=== PATIENT | male | born 1950 | race Caucasian/White ===

== ENCOUNTER 2019-02-15 16:18 | Inpatient (IN) | payer MEDICARE, OTHER ==
[~2019-02-15] VITALS: Ht 180.3 cm; Wt 80.9 kg
--- NOTE | 2019-02-15 16:48 | NUR ---
PT STATES COORDINATION OF LUE "OFF" TODAY, STATES UNSURE OF LLE MOVEMENT. PT ABLE TO AMBULATE, DENIES WEAKNESS. GCS 15, NO SLURRED SPEECH, NO FACIAL DROOP. CALL LIGHT WITHIN REACH, WARM BLANKET PROVIDED. POC REVIEWED WITH PT AND SPOUSE.
[2019-02-15 16:59] LABS: BASOPHILS # (AUTO) 0.03 x10^3/uL (0-0.1); BASOPHILS % (AUTO) 1 % (0-1); EOSINOPHILS # (AUTO) 0.06 x10^3/uL (0-0.4); EOSINOPHILS % (AUTO) 1 % (1-7); LYMPHOCYTES # (AUTO) 0.84 x10^3/uL (1-3.4); LYMPHOCYTES % (AUTO) 15 % (22-44); MD NO; MEAN CORPUSCULAR HEMOGLOBIN 34.5 pg (27.5-34.5); MEAN CORPUSCULAR HGB CONC 33.5 g/dL (33.2-36.2); MEAN CORPUSCULAR VOLUME 103.1 fL (81-97); MEAN PLATELET VOLUME 6.8 fL (7.4-10.4); MONOCYTES # (AUTO) 0.65 x10^3/uL (0.2-0.8); MONOCYTES % (AUTO) 12 % (2-9); NEUTROPHILS # (AUTO) 3.94 x10^3/uL (1.8-6.8); NEUTROPHILS % (AUTO) 71 % (42-75); PLATELET COUNT 270 x10^3/uL (130-400); RED BLOOD COUNT 4.64 x10^6/uL (4.38-5.82); RED CELL DISTRIBUTION WIDTH 13.6 % (9.4-14.8)
[2019-02-15 17:10] LABS: ALANINE AMINOTRANSFERASE 34 U/L (12-78); ALBUMIN 4.2 g/dL (3.4-5.0); ANION GAP 6 mmol/L (5-15); CALCIUM 9.2 mg/dL (8.5-10.1); CHLORIDE 106 mmol/L (98-107); CREATININE 1.08 mg/dL (0.7-1.3)
[2019-02-15 17:11] LABS: PROTHROMBIN TIME 10.5 Seconds (9.6-11.5)
[2019-02-15 17:13] LABS: ALKALINE PHOSPHATASE 67 U/L (45-117); BILIRUBIN,TOTAL 0.6 mg/dL (0.2-1.0); TOTAL PROTEIN 7.4 g/dL (6.4-8.2)
[2019-02-15] MEDS ORDERED: ATOR10TA9 PO (17:44)
[2019-02-15] MEDS ORDERED: ESOM20CA PO (17:44)
[2019-02-15] MEDS ORDERED: MONT10TA9 PO (17:44)
[2019-02-15] MEDS ORDERED: VIT1TABL67 PO (17:44)
[2019-02-15] MEDS ORDERED: TELM1TAB PO (17:44)
[2019-02-15] MEDS ORDERED: LEVO75TA5 PO (17:44)
[2019-02-15] MEDS ORDERED: CALC600T23 PO (17:44)
[2019-02-15] MEDS ORDERED: AMLO-150 PO (17:44)
[2019-02-15] MEDS ORDERED: MULT-257 PO (17:46)
[2019-02-15] MEDS ORDERED: UBID100C41 PO (17:46)
[2019-02-15] MEDS ORDERED: MELA5TAB19 PO (17:46)
--- NOTE | 2019-02-15 18:23 | NUR ---
ALL RESULTS BACK, PT FOR RECHECK.
--- NOTE | 2019-02-15 18:45 | NUR ---
IV PLACED FOR ADMISSION. PT TO MRI. VSS/UPDATED IN COMPUTER. MED REC COMPLETED PREVIOUSLY.
[2019-02-15] MEDS ORDERED: ONDANSETRON 4 MG TABLET PO PRN (19:30)
[2019-02-15] MEDS ORDERED: ACETAMINOPHEN 650 MG/20.3 ML UDC PO PRN (19:30)
[2019-02-15] MEDS ORDERED: DOCUSATE 100 MG CAPSULE PO PRN (19:30)
[2019-02-15] MEDS ORDERED: POLYETHYLENE GLYCOL 17 GM PACKET PO PRN (19:30)
[2019-02-15] MEDS ORDERED: BISACODYL 10 MG SUPP PR PRN (19:30)
--- NOTE | 2019-02-15 19:35 | NUR ---
REPORT TO RAMON ANDERSON, PT READY FOR TRANSPORT TO FLOOR.
[2019-02-15 20:02] VITALS: BP 157/96
[2019-02-15] MEDS: CALCIUM CARBONATE 500 MG TABLET PO SCH (20:14)
[2019-02-15] MEDS ORDERED: ATORVASTATIN 40 MG TABLET PO SCH (21:00)
[2019-02-15] MEDS ORDERED: ATORVASTATIN 10 MG TABLET PO SCH (21:00)
[2019-02-16 00:33] VITALS: BP 127/85
[2019-02-16 02:08] VITALS: BP 119/77
[2019-02-16 03:51] VITALS: BP 155/86
[2019-02-16 04:45] LABS: BASOPHILS # (AUTO) 0.01 x10^3/uL (0-0.1); BASOPHILS % (AUTO) 0 % (0-1); EOSINOPHILS # (AUTO) 0.16 x10^3/uL (0-0.4); EOSINOPHILS % (AUTO) 3 % (1-7); LYMPHOCYTES % (AUTO) 18 % (22-44); MD NO; MEAN CORPUSCULAR HEMOGLOBIN 34.4 pg (27.5-34.5); MEAN CORPUSCULAR HGB CONC 33.3 g/dL (33.2-36.2); MEAN CORPUSCULAR VOLUME 103.3 fL (81-97); MEAN PLATELET VOLUME 7.2 fL (7.4-10.4); MONOCYTES # (AUTO) 0.73 x10^3/uL (0.2-0.8); MONOCYTES % (AUTO) 13 % (2-9); NEUTROPHILS # (AUTO) 3.68 x10^3/uL (1.8-6.8); NEUTROPHILS % (AUTO) 66 % (42-75); PLATELET COUNT 235 x10^3/uL (130-400); RED BLOOD COUNT 4.53 x10^6/uL (4.38-5.82); RED CELL DISTRIBUTION WIDTH 13.8 % (9.4-14.8)
[2019-02-16 04:54] LABS: ALBUMIN 3.8 g/dL (3.4-5.0); CALCIUM 9.2 mg/dL (8.5-10.1); CHLORIDE 107 mmol/L (98-107)
[2019-02-16 04:58] LABS: ALANINE AMINOTRANSFERASE 31 U/L (12-78); ALKALINE PHOSPHATASE 63 U/L (45-117); ANION GAP 8 mmol/L (5-15); BILIRUBIN,TOTAL 0.7 mg/dL (0.2-1.0); CHOL/HDL RATIO 2.8; CHOLESTEROL, TOTAL 165 mg/dL (140-239); CREATININE 0.96 mg/dL (0.7-1.3); HDL CHOL % 35 % (26-37); HDL CHOLESTEROL (DIRECT) 58 mg/dL (40-60); LDL CHOLESTEROL,CALCULATED 68 mg/dL (54-169); LDL/HDL RATIO 1.2 (0.5-3.0); TOTAL PROTEIN 6.7 g/dL (6.4-8.2); TRIGLYCERIDES 197 mg/dL (50-200); VLDL CHOLESTEROL 39 mg/dL (0-25)
[2019-02-16] MEDS ORDERED: LEVOTHYROXINE 75 MCG TABLET PO SCH (06:00)
[2019-02-16 06:09] VITALS: BP 150/102
[2019-02-16] MEDS: CALCIUM CARBONATE 500 MG TABLET PO SCH (08:13)
[2019-02-16] MEDS ORDERED: MELATONIN 5 MG TABLET PO SCH (09:00)
[2019-02-16] MEDS ORDERED: [UNRECOGNIZED DRUG - OTHER] PO SCH (09:00)
[2019-02-16] MEDS ORDERED: HOPS PO SCH (09:00)
[2019-02-16] MEDS ORDERED: AMLODIPINE 5 MG TABLET PO SCH (09:00)
[2019-02-16] MEDS ORDERED: BERBERINE HCL PO SCH (09:00)
[2019-02-16] MEDS ORDERED: ASPIRIN 81 MG TABLET CHEW PO/NG SCH (09:00)
[2019-02-16] MEDS ORDERED: MONTELUKAST 10 MG TABLET PO SCH (09:00)
[2019-02-16] MEDS ORDERED: TEMPLATE NON-FORMULARY MED. (Ubidecarenone** (Co Q-10**) 100 MG) PO SCH (09:00)
[2019-02-16] MEDS ORDERED: [UNRECOGNIZED DRUG - OTHER] HOMEMEDPO SCH (09:00)
[2019-02-16] MEDS ORDERED: MULTIVITAMIN 1 TABLET PO SCH (09:00)
[2019-02-16] MEDS ORDERED: PANTOPROZOLE 40MG TABLET PO SCH (09:00)
[2019-02-16] MEDS ORDERED: VIT D3 PO SCH (09:00)
[2019-02-16 12:47] VITALS: BP 126/84
[2019-02-16] MEDS ORDERED: ATOR40TA78 PO (14:41)
[2019-02-16] MEDS ORDERED: ASPI-515 PO/NG (14:41)
== END 2019-02-16 16:05 | disposition home or self-care (01) | DRG 65 ==
LOC: ED 18:09 → EDIP 19:35 → 4WST 19:45 → DCLOUNGE 02-16 15:52
PROVIDERS: ADMIT Family Medicine; ATTEND Family Medicine
DX: I63.40 Cerebral infarction due to embolism of unspecified cerebral artery (principal); G81.94 Hemiplegia, unspecified affecting left nondominant side; E78.5 Hyperlipidemia, unspecified; E78.00 Pure hypercholesterolemia, unspecified; D75.89 Other specified diseases of blood and blood-forming organs; E03.9 Hypothyroidism, unspecified; F17.200 Nicotine dependence, unspecified, uncomplicated; I10 Essential (primary) hypertension; Z80.9 Family history of malignant neoplasm, unspecified; Z82.3 Family history of stroke; Z85.819 Personal history of malignant neoplasm of unspecified site of lip, oral cavity, and pharynx; Z92.3 Personal history of irradiation
CPT/HCPCS: 36415; 70450; 70551; 80053; 80061; 82607; 85025; 85610; 85730; 93005; 93306; 93880; 99285; G0378

== ENCOUNTER → 2020-07-25 | Outpatient (CLI) | payer MEDICARE, OTHER ==
[~2020-07-25] MED LIST: AMLO-150 PO; ASPI-515 PO/NG; ATOR10TA9 PO; ATOR40TA78 PO; CALC600T23 PO; ESOM20CA PO; LEVO75TA5 PO; MELA5TAB14 PO; MONT10TA11 PO; MULT-257 PO; OMNIPAQUE 350 MG/ML, 100ML BOTTLE ONE; TELM1TAB PO; UBID100C41 PO; VIT1TABL67 PO
== END | disposition home or self-care (01) ==
LOC: CFH 09:06
PROVIDERS: ATTEND Nurse Practitioner
DX: J84.10 Pulmonary fibrosis, unspecified (principal); I72.8 Aneurysm of other specified arteries; I77.810 Thoracic aortic ectasia; M47.814 Spondylosis without myelopathy or radiculopathy, thoracic region; I70.0 Atherosclerosis of aorta; Q25.49 Other congenital malformations of aorta
CPT/HCPCS: 71275; 82565; Q9967